=== PATIENT | male | born 1995 | race African-American/Black ===

== ENCOUNTER 2017-08-04 01:17 | Emergency (ER) | payer SELFPAY ==
[2017-08-04] MEDS ORDERED: LORAZEPAM 1 MG TABLET PO ONE (01:46)
--- NOTE | 2017-08-04 01:46 | ER Document Report ---
HPI - HPI Patient complains to provider of: shakey, short of breath, daily marijuana use Pain Level: Denies Context: 21 yo male smoked marijuana like he usually does daily at 23:30 had strange feeling, shakiness, short of breath- not able to breath, was very agitated ( sitting-standing), feeling palpitations. Under a lot of stress, obtains marijuana from same dealer for 4 years. He went to wake up his girlfriend bc he couldn't breathe. No hx asthma. They (mom, girlfriend and her mom -all in the room) think he needs to see a counselor due to depression/anxious but not suicidal. Earlier tonight he went on a rant about everything he sees wrong in his life and in those around him. They think it has built up over time and now coming out. Daily marijuana for 4 years. Associated Symptoms: Shortness of breath, Other - shakey, see above Exacerbated by: Denies Relieved by: Denies Similar symptoms previously: No Recently seen / treated by doctor: No - ROS ROS below otherwise negative: Yes Systems Reviewed and Negative: Yes All other systems reviewed and negative - REPRODUCTIVE Reproductive: DENIES: : Past Medical History - General Information source: Patient - Social History Smoking Status: Never Smoker Frequency of alcohol use: None Drug Abuse: Marijuana - daily Occupation: [employer] Lives with: Spouse/Significant other Family History: Reviewed & Not Pertinent - Past Medical History Cardiac Medical History: Pulmonary Medical History: GI Medical History: Musculoskeltal Medical History: Infectious Medical History: Surgical Hx: Negative - Immunizations Immunizations up to date: Yes Hx Diphtheria, Pertussis, Tetanus Vaccination: No Vertical Provider Document - CONSTITUTIONAL Agree With Documented VS: Yes Exam Limitations: No Limitations General Appearance: No Apparent Distress - INFECTION CONTROL TRAVEL OUTSIDE OF THE [place] IN LAST 30 DAYS: No - HEENT HEENT: Normal ENT Exam, Normocephalic - NECK Neck: Supple. negative: Lymphadenopathy-Left, Lymphadenopathy-Right - RESPIRATORY Respiratory: Breath Sounds Normal, No Respiratory Distress O2 Sat by Pulse Oximetry: 100 - CARDIOVASCULAR Cardiovascular: Regular Rate - rate 90 now, Regular Rhythm - GI/ABDOMEN Gastrointestinal: Abdomen Soft, Abdomen Non-Tender - MUSCULOSKELETAL/EXTREMETIES Musculoskeletal/Extremeties: GERRY CARROLL - NEURO Level of Consciousness: Awake, Alert, Appropriate, Agitated - tremulous Motor/Sensory: No Motor Deficit, No Sensory Deficit - DERM Integumentary: Warm, Dry, No Rash Course - Re-evaluation Re-evalutation: 08/04/17 02:39 feels much better, vitals normal, not anxious at this time. Information for counseling services in [place] has been given to him. Urin 1.033, will encourage to drink more fluid 08/04/17 02:44 - Vital Signs Vital signs: Temp Pulse Resp BP Pulse Ox 98.3 F 110 H 18 163/80 H 100 08/04/17 01:18 08/04/17 01:18 08/04/17 01:18 08/04/17 01:18 08/04/17 01:18 Discharge - Discharge Clinical Impression: Anxiety, Marijuana abuse Condition: Good Disposition: HOME, SELF-CARE Instructions: Anxiety ([facility]) Additional Instructions: Call me in 1 hour for the drug screen results at [phone] Drink plenty of fluids to stay hydrated seek counselor for anxiety and/or depression, list given to you to er if symptoms recur Please complete the patient satisfaction survey if you get one, and return it.. If you do not receive a survey, then you can go to the [facility] website, [email or web address] and place your comments about your very good care. Thank you very much. It was a pleasure being your medical provider today. Prescriptions: Lorazepam [Ativan 1 mg Tablet] 1 mg PO Q6HP PRN #8 tab PRN Reason:
[2017-08-04 02:21] LABS: APPEARANCE,URINE CLEAR; BILIRUBIN,URINE NEGATIVE (NEGATIVE); GLUCOSE, URINE NEGATIVE (NEGATIVE); KETONES,URINE TRACE mg/dL (NEGATIVE); LEUKOCYTE ESTERASE,URINE NEGATIVE (NEGATIVE); NITRITE,URINE NEGATIVE (NEGATIVE); PROTEIN,URINE 30 mg/dL (NEGATIVE); URINE SPECIFIC GRAVITY 1.033
[2017-08-04 02:34] LABS: URINE BARBITURATES SCREEN NEGATIVE; URINE METHADONE SCREEN NEGATIVE; URINE OPIATES LOW NEGATIVE; URINE PHENCYCLIDINE SCREEN NEGATIVE
[2017-08-04 02:42] VITALS: BP 125/82
== END 2017-08-04 02:50 | disposition home or self-care (01) ==
LOC: ER 01:17
DX: F41.9 Anxiety disorder, unspecified (principal); F12.10 Cannabis abuse, uncomplicated; R06.02 Shortness of breath; R45.1 Restlessness and agitation; F32.9 Major depressive disorder, single episode, unspecified
CPT/HCPCS: 80307; 81001; 99285

== ENCOUNTER 2017-08-18 23:28 | Emergency (ER) | payer SELFPAY ==
[2017-08-19] MEDS ORDERED: LORAZEPAM 1 MG TABLET PO ONE (00:25)
--- NOTE | 2017-08-19 00:28 | ER Document Report ---
ED General - General Chief Complaint: Anxiety Stated Complaint: ANXIETY Time Seen by Provider: 08/19/17 00:00 Notes: Patient is a 21-year-old male who presents with feelings of palpitations, anxiety, and tremulousness. Patient reports that this is a second episode of similar symptoms in the past 2 weeks but today's episode of pelvic more severe. He states last time his symptoms were triggered by marijuana but is adamant that he did not use any today. He denies any suicidal or homicidal ideation. Nothing seems to improve or worsen his symptoms. He denies any clear trigger for today's episode stating he was sitting watching television when it started. He denies any chest pain, shortness of breath, pleuritic pain, or syncope. He has not seen a primary care doctor regarding today's concerns. TRAVEL OUTSIDE OF THE [place] IN LAST 30 DAYS: No - Related Data Allergies/Adverse Reactions: No Known Allergies Allergy (Verified 08/04/17 02:03) Past Medical History - General Information source: Patient - Social History Smoking Status: Never Smoker Frequency of alcohol use: None Drug Abuse: None Lives with: Spouse/Significant other Family History: Reviewed & Not Pertinent - Past Medical History Cardiac Medical History: Denies: Hx Coronary Artery Disease, Hx Heart Attack, Hx Hypertension Pulmonary Medical History: Denies: Hx Asthma, Hx Bronchitis, Hx COPD, Hx Pneumonia Neurological Medical History: Denies: Hx Cerebrovascular Accident, Hx Seizures Renal/ Medical History: Denies: Hx Peritoneal Dialysis GI Medical History: Musculoskeltal Medical History: Denies Hx Arthritis Traumatic Medical History: Denies: Hx Fractures Infectious Medical History: Past Surgical History: Denies: Hx Pacemaker - Immunizations Immunizations up to date: Yes Hx Diphtheria, Pertussis, Tetanus Vaccination: No Review of Systems - Review of Systems Notes: Constitutional: Negative for fever. HENT: Negative for sore throat. Eyes: Negative for visual changes. Cardiovascular: Positive for palpitations Respiratory: Negative for shortness of breath. Gastrointestinal: Negative for abdominal pain, vomiting or diarrhea. Genitourinary: Negative for dysuria. Musculoskeletal: Negative for back pain. Skin: Negative for rash. Neurological: Negative for headaches, weakness or numbness. 10 point ROS negative except as marked above and in HPI. Physical Exam - Vital signs Vitals: Temp Pulse BP Pulse Ox 98.8 F 130 H 152/96 H 100 08/18/17 23:44 08/18/17 23:44 08/18/17 23:44 08/18/17 23:44 Interpretation: Tachycardic Notes: PHYSICAL EXAMINATION: GENERAL: Well-appearing, well-nourished and in no acute distress. HEAD: Atraumatic, normocephalic. EYES: Pupils equal round and reactive to light, extraocular movements intact, sclera anicteric, conjunctiva are normal. ENT: nares patent, oropharynx clear without exudates. Moist mucous membranes. NECK: Normal range of motion, supple without lymphadenopathy LUNGS: Breath sounds clear to auscultation bilaterally and equal. No wheezes rales or rhonchi. HEART: Regular tachycardia without murmurs ABDOMEN: Soft, nontender, normoactive bowel sounds. No guarding, no rebound. No masses appreciated. EXTREMITIES: Normal range of motion, no pitting or edema. No cyanosis. NEUROLOGICAL: No focal neurological deficits. Moves all extremities spontaneously and on command. PSYCH: Quite anxious, tremulous SKIN: Warm, Dry, normal turgor, no rashes or lesions noted. Course - Re-evaluation Re-evalutation: 08/19/17 00:25 Patient presents with history most consistent with an acute panic attack. The patient admits that these are symptoms identical to prior occasions of panic. Symptoms did resolve after receiving medical therapy here in the emergency department. Vitals otherwise within normal limits. I do not suspect an acute pulmonary embolus, ACS, pneumothorax, or any other acute left threatening pathology based on history and exam. I do not believe any labs or imaging are indicated at this time. At this time will discharge with return precautions and follow-up recommendations. Verbal discharge instructions given a the bedside and opportunity for questions given. Medication warnings reviewed. Patient is in agreement with this plan and has verbalized understanding of return precautions and the need for primary care follow-up in the next 24-72 hours. - Vital Signs Vital signs: Temp Pulse Resp BP Pulse Ox 98.0 F 66 16 124/68 98 08/19/17 01:34 08/19/17 01:34 08/19/17 01:34 08/19/17 01:34 08/19/17 01:34 - EKG Interpretation by Me Additional EKG results interpreted by me: 08/19/17 00:27 Sinus tachycardia. Rate 112. No ST elevations or depressions. QTC is 443. Discharge - Discharge Clinical Impression: Panic attack Condition: Good Disposition: HOME, SELF-CARE Instructions: Anxiety ([facility]) Additional Instructions: You were seen today for a panic attack. Please return if you develop recurrence of your symptoms, thoughts of wanting to harm yourself, or any other symptoms that are concerning to you. Follow-up with your primary doctor or mental health provider regarding today's ED visit.
[2017-08-19 01:41] VITALS: BP 124/68
--- NOTE | 2017-08-19 12:16 | EKG REPORT ---
SEVERITY:- ABNORMAL ECG - SINUS TACHYCARDIA PROBABLE LEFT ATRIAL ABNORMALITY ABNORMAL Q SUGGESTS ANTERIOR INFARCT : Confirmed by: Jennifer Rutherford MD 19-Aug-2017 12:16:08
== END 2017-08-19 01:41 | disposition home or self-care (01) ==
LOC: ER 23:28
DX: F41.0 Panic disorder [episodic paroxysmal anxiety] (principal); R00.2 Palpitations; R00.0 Tachycardia, unspecified
CPT/HCPCS: 93005; 93010; 99283

== ENCOUNTER 2017-08-26 14:02 | Emergency (ER) | payer BC ==
--- NOTE | 2017-08-26 15:14 | ER Document Report ---
ED Medical Screen (RME) - General Chief Complaint: Psych Problem Stated Complaint: DIZZINESS Time Seen by Provider: 08/26/17 15:09 Mode of Arrival: Ambulatory Information source: Patient Notes: Pt has anxiety and started lexapro three days ago and had lgihtheadedness, dizziness, and is having chest pain with deep breathing. denies other symptoms such as cough. TRAVEL OUTSIDE OF THE [place] IN LAST 30 DAYS: No - Related Data Allergies/Adverse Reactions: No Known Allergies Allergy (Verified 08/26/17 14:05) Past Medical History - General Information source: Patient - Past Medical History Cardiac Medical History: Denies: Hx Coronary Artery Disease, Hx Heart Attack, Hx Hypertension Pulmonary Medical History: Denies: Hx Asthma, Hx Bronchitis, Hx COPD, Hx Pneumonia Neurological Medical History: Denies: Hx Cerebrovascular Accident, Hx Seizures Renal/ Medical History: Denies: Hx Peritoneal Dialysis GI Medical History: Musculoskeltal Medical History: Denies Hx Arthritis Traumatic Medical History: Denies: Hx Fractures Infectious Medical History: Past Surgical History: Denies: Hx Pacemaker - Immunizations Immunizations up to date: Yes Hx Diphtheria, Pertussis, Tetanus Vaccination: No Review of Systems - Review of Systems Neurological/Psychological: See HPI Physical Exam - Vital signs Vitals: Temp Pulse Resp BP Pulse Ox 98.0 F 75 12 161/87 H 99 08/26/17 14:23 08/26/17 14:23 08/26/17 14:23 08/26/17 14:23 08/26/17 14:23 - Notes Notes: general: nad psych: calm Course - Vital Signs Vital signs: Temp Pulse Resp BP Pulse Ox 98.0 F 75 12 161/87 H 99 08/26/17 14:23 08/26/17 14:23 08/26/17 14:23 08/26/17 14:23 08/26/17 14:23
[2017-08-26 15:42] LABS: ABSOLUTE LYMPHOCYTES (AUTO) 1.7 10^3/uL (0.5-4.7); ABSOLUTE MONOCYTES (AUTO) 0.5 10^3/uL (0.1-1.4); ABSOLUTE NEUT (AUTO) 3.6 10^3/uL (1.7-8.2); BASOPHILS % (AUTO) 0.8 % (0-2); EOSINOPHILS % (AUTO) 0.8 % (0-6); HEMATOCRIT 46.5 % (37.9-51.0); HEMOGLOBIN 16.2 g/dL (13.5-17.0); MEAN CORPUSCULAR HEMOGLOBIN 31.7 pg (27.0-33.4); MEAN CORPUSCULAR HGB CONC 34.8 g/dL (32.0-36.0); MEAN CORPUSCULAR VOLUME 91 fl (80-97); PLATELET COUNT 308 10^3/uL (150-450); RED BLOOD COUNT 5.12 10^6/uL (4.35-5.55); RED CELL DISTRIBUTION WIDTH 13.8 % (11.5-14.0); SEGMENTED NEUTROPHILS % (AUTO) 61.4 % (42-78); TOTAL CELLS COUNTED % (AUTO) 100 %; WHITE BLOOD COUNT 5.8 10^3/uL (4.0-10.5)
--- NOTE | 2017-08-26 15:44 | RADIOLOGY REPORT (SQ) ---
EXAM DESCRIPTION: CHEST PA/LAT COMPLETED DATE/TIME: 08/26/2017 3:35 pm REASON FOR STUDY: cp with deep breathing only COMPARISON: None. EXAM PARAMETERS: NUMBER OF VIEWS: two views TECHNIQUE: Digital Frontal and Lateral radiographic views of the chest acquired. RADIATION DOSE: NA LIMITATIONS: none FINDINGS: LUNGS AND PLEURA: No opacities, masses or pneumothorax. No pleural effusion. MEDIASTINUM AND HILAR STRUCTURES: No masses or contour abnormalities. HEART AND VASCULAR STRUCTURES: Heart normal size. No evidence for failure. BONES: No acute findings. HARDWARE: None in the chest. OTHER: No other significant finding. IMPRESSION: NO SIGNIFICANT RADIOGRAPHIC FINDING IN THE CHEST. TECHNICAL DOCUMENTATION: JOB ID: [id number] [employer]- All Rights Reserved
[2017-08-26 15:50] LABS: APPEARANCE,URINE CLEAR; BILIRUBIN,URINE NEGATIVE (NEGATIVE); COLOR,URINE YELLOW; GLUCOSE, URINE NEGATIVE (NEGATIVE); KETONES,URINE NEGATIVE (NEGATIVE); LEUKOCYTE ESTERASE,URINE NEGATIVE (NEGATIVE); NITRITE,URINE NEGATIVE (NEGATIVE); PROTEIN,URINE NEGATIVE (NEGATIVE); URINE SPECIFIC GRAVITY 1.014; UROBILINOGEN,URINE NEGATIVE mg/dL (<2.0)
[2017-08-26 15:55] LABS: ALANINE AMINOTRANSFERASE 30 U/L (21-72); ALBUMIN 5.2 g/dL (3.5-5.0); ALKALINE PHOSPHATASE 69 U/L (38-126); ANION GAP 14 (5-19); ASPARTATE AMINO TRANSFERASE 27 U/L (17-59); BILIRUBIN,DIRECT 0.2 mg/dL (0.0-0.4); BILIRUBIN,TOTAL 0.4 mg/dL (0.2-1.3); BLOOD UREA NITROGEN 11 mg/dL (7-20); CARBON DIOXIDE 29 mmol/L (22-30); CHLORIDE 100 mmol/L (98-107); GLUCOSE 86 mg/dL (75-110); POTASSIUM 4.4 mmol/L (3.6-5.0); SODIUM 143.4 mmol/L (137-145); TOTAL PROTEIN 8.5 g/dL (6.3-8.2)
[2017-08-26 16:05] LABS: URINE AMPHETAMINES SCREEN NEGATIVE; URINE BARBITURATES SCREEN NEGATIVE; URINE BENZODIAZEPINES SCREEN NEGATIVE; URINE COCAINE SCREEN NEGATIVE; URINE MARIJUANA (THC) SCREEN UNCONFIRMED POSITIVE; URINE METHADONE SCREEN NEGATIVE; URINE PHENCYCLIDINE SCREEN NEGATIVE
--- NOTE | 2017-08-26 17:09 | ER Document Report ---
ED Psych Disorder / Suicide - General Chief Complaint: Psych Problem Stated Complaint: DIZZINESS Time Seen by Provider: 08/26/17 15:09 Mode of Arrival: Ambulatory Information source: Patient Notes: Patient reports anxiety symptoms off and on for the past several weeks. Patient states that 3 days ago he took a friend's Lexapro to help manage his anxiety symptoms. Patient feels that after taking the medication his symptoms worsened. Patient also reports a recent in the family that has exacerbated his symptoms. Patient states that he has an anxious restless sensation. Patient denies any chest pain. Patient denies any suicidal homicidal ideation. Patient states that he has not smoked any marijuana since his anxiety symptoms started. TRAVEL OUTSIDE OF THE [place] IN LAST 30 DAYS: No - HPI Patient complains to provider of: No: Homicidal plan, Suicidal plan Onset: Other - 3 weeks Onset was: Gradual Pain Level: Denies Suicide Risk Factors: Male, Substance abuse. No: Lack of social support Situational problems related to: Recent Associated symptoms: Anxious Similar symptoms previously: Yes Recently seen / treated by doctor: Yes - Related Data Allergies/Adverse Reactions: No Known Allergies Allergy (Verified 08/26/17 14:05) Past Medical History - General Information source: Patient - Social History Smoking Status: Never Smoker Frequency of alcohol use: None Drug Abuse: Marijuana Occupation: Foodservice Family History: Reviewed & Not Pertinent - Medical History Medical History: Negative - Past Medical History Cardiac Medical History: Denies: Hx Coronary Artery Disease, Hx Heart Attack, Hx Hypertension Pulmonary Medical History: Denies: Hx Asthma, Hx Bronchitis, Hx COPD, Hx Pneumonia Neurological Medical History: Denies: Hx Cerebrovascular Accident, Hx Seizures Renal/ Medical History: Denies: Hx Peritoneal Dialysis GI Medical History: Musculoskeltal Medical History: Denies Hx Arthritis Traumatic Medical History: Denies: Hx Fractures Infectious Medical History: Past Surgical History: Reports: Hx Orthopedic Surgery. Denies: Hx Pacemaker - Immunizations Immunizations up to date: Yes Hx Diphtheria, Pertussis, Tetanus Vaccination: No Review of Systems - Review of Systems Constitutional: No symptoms reported. denies: Fever, Recent illness EENT: No symptoms reported Cardiovascular: Dizziness, Lightheaded Respiratory: No symptoms reported. denies: Cough Gastrointestinal: No symptoms reported Genitourinary: No symptoms reported Male Genitourinary: No symptoms reported Musculoskeletal: No symptoms reported Skin: No symptoms reported Hematologic/Lymphatic: No symptoms reported Neurological/Psychological: Anxiety. denies: Homicidal ideation, Suicidal ideation Physical Exam - Vital signs Vitals: Temp Pulse Resp BP Pulse Ox 98.0 F 75 12 161/87 H 99 08/26/17 14:23 08/26/17 14:23 08/26/17 14:23 08/26/17 14:23 08/26/17 14:23 - General General appearance: Appears well, Alert, Anxious - mild In distress: None - HEENT Head: Normocephalic, Atraumatic Eyes: Normal Conjunctiva: Normal Pupils: PERRL Nasal: Normal Mouth/Lips: Normal Mucous membranes: Normal Pharynx: Normal Neck: Normal, Supple. No: Lymphadenopathy - Respiratory Respiratory status: No respiratory distress Chest status: Nontender Breath sounds: Normal. No: Rales, Rhonchi, Stridor, Wheezing Chest palpation: Normal - Cardiovascular Rhythm: Regular. No: Tachycardia Heart sounds: S1 appreciated, S2 appreciated Murmur: No - Back Back: Normal, Nontender. No: CVA tenderness - Extremities General upper extremity: Normal inspection, Normal ROM General lower extremity: Normal inspection, Normal ROM - Neurological Neuro grossly intact: Yes Cognition: Normal Abdoul Coma Scale Eye Opening: Spontaneous Abdoul Coma Scale Verbal: Oriented Abdoul Coma Scale Motor: Obeys Commands [place] Coma Scale Total: 15 - Psychological Associated symptoms: Anxious, Other - poor eye contact - Skin Skin Temperature: Warm Skin Moisture: Dry Skin Color: Normal Course - Re-evaluation Re-evalutation: 08/26/17 18:19 Consulted with Michael who had spoke with Dr. Ruffin who gives a recommendation of adding BuSpar 5 mg twice a day instead of the Ativan to help with anxiety symptoms. Does advise giving patient resource information for outpatient follow -up with mental health provider. Patient without any suicidal or homicidal ideation agrees with plan for discharge. No concern for IVC. 08/26/17 18:[address] Herrera regarding patient presentation, reviewed diagnostic test results as well as EKG. Agrees with discharge plan of care. - Vital Signs Vital signs: Temp Pulse Resp BP Pulse Ox 98.4 F 69 18 146/97 H 95 08/26/17 18:28 08/26/17 18:28 08/26/17 18:28 08/26/17 18:28 08/26/17 18:28 - Laboratory Result Diagrams: 08/26/17 15:25 08/26/17 15:25 Laboratory results interpreted by me: 08/26/17 15:25 Calcium 11.0 H Total Protein 8.5 H Albumin 5.2 H 08/26/17 18:19 Labs- Entire Visit 08/26/17 08/26/17 08/26/17 15:25 15:25 15:25 WBC 5.8 RBC 5.12 Hgb 16.2 Hct 46.5 MCV 91 MCH 31.7 MCHC 34.8 RDW 13.8 Plt Count 308 Seg Neutrophils % 61.4 Lymphocytes % 29.0 Monocytes % 8.0 Eosinophils % 0.8 Basophils % 0.8 Absolute Neutrophils 3.6 Absolute Lymphocytes 1.7 Absolute Monocytes 0.5 Absolute Eosinophils 0.0 Absolute Basophils 0.0 Sodium 143.4 Potassium 4.4 Chloride 100 Carbon Dioxide 29 Anion Gap 14 BUN 11 Creatinine 0.95 Est GFR ( Amer) > 60 Est GFR (Non-Af Amer) > 60 Glucose 86 Calcium 11.0 H Total Bilirubin 0.4 Direct Bilirubin 0.2 Neonat Total Bilirubin Not Reportable Neonat Direct Bilirubin Not Reportable Neonat Indirect Bili Not Reportable AST 27 ALT 30 Alkaline Phosphatase 69 Total Protein 8.5 H Albumin 5.2 H Urine Color YELLOW Urine Appearance CLEAR Urine pH 8.0 Ur Specific Blair 1.014 Urine Protein NEGATIVE Urine Glucose (UA) NEGATIVE Urine Ketones NEGATIVE Urine Blood NEGATIVE Urine Nitrite NEGATIVE Urine Bilirubin NEGATIVE Urine Urobilinogen NEGATIVE Ur Leukocyte Esterase NEGATIVE Urine WBC (Auto) 1 Urine RBC (Auto) 0 Urine Mucus (Auto) RARE Urine Ascorbic Acid NEGATIVE Urine Opiates Screen Urine Methadone Screen Ur Barbiturates Screen Ur Phencyclidine Scrn Ur Amphetamines Screen U Benzodiazepines Scrn Urine Cocaine Screen U Marijuana (THC) Screen 08/26/17 15:25 WBC RBC Hgb Hct MCV MCH MCHC RDW Plt Count Seg Neutrophils % Lymphocytes % Monocytes % Eosinophils % Basophils % Absolute Neutrophils Absolute Lymphocytes Absolute Monocytes Absolute Eosinophils Absolute Basophils Sodium Potassium Chloride Carbon Dioxide Anion Gap BUN Creatinine Est GFR ( Amer) Est GFR (Non-Af Amer) Glucose Calcium Total Bilirubin Direct Bilirubin Neonat Total Bilirubin Neonat Direct Bilirubin Neonat Indirect Bili AST ALT Alkaline Phosphatase Total Protein Albumin Urine Color Urine Appearance Urine pH Ur Specific Blair Urine Protein Urine Glucose (UA) Urine Ketones Urine Blood Urine Nitrite Urine Bilirubin Urine Urobilinogen Ur Leukocyte Esterase Urine WBC (Auto) Urine RBC (Auto) Urine Mucus (Auto) Urine Ascorbic Acid Urine Opiates Screen NEGATIVE Urine Methadone Screen NEGATIVE Ur Barbiturates Screen NEGATIVE Ur Phencyclidine Scrn NEGATIVE Ur Amphetamines Screen NEGATIVE U Benzodiazepines Scrn NEGATIVE Urine Cocaine Screen NEGATIVE U Marijuana (THC) Screen UNCONFIRMED POSITIVE - Diagnostic Test Radiology reviewed: Reports reviewed Discharge - Discharge Clinical Impression: Anxiety, Elevated blood pressure reading Condition: Stable Disposition: HOME, SELF-CARE Instructions: Anxiety ([facility]) Additional Instructions: Return immediately for any new or worsening symptoms Followup with your primary care provider, call tomorrow to make a followup appointment Do not take medications that are not prescribed to you. You can use the BuSpar instead of the Ativan to help with your anxiety symptoms Follow-up with a mental health provider from list provided, call tomorrow for an appointment Prescriptions: Buspirone HCl [Buspar 5 mg Tablet] 1 tab PO BID #20 tab Forms: Elevated Blood Pressure Referrals: [facility] [Provider Group] - Follow up as needed [facility] [Provider Group] - Follow up tomorrow
[2017-08-26 18:31] VITALS: BP 146/97
--- NOTE | 2017-08-26 19:44 | PSYCHOLOGICAL NOTE ---
Psych Note - Psych Note Psych Note: Reason for consult: Anxiety Consent Permissions: none given Patient presents to ED with complaints of feeling dizzy and "not right" since taking lexapro 2 days ago. Patient states he is prescribed ativan and ran out and thought his sister's lexapro would help. Patient states he felt the lexapro would have "wore off by now". denies any SI/HI and states "just want to make sure I'm okay." Patient disclosed that he had his anxiety attack on Aug 04 and when he came to the ED the attending physician explained to him that smoking marijuana could be causing his anxiety, so he decided to stop. He continued to disclose that he ending up smoking again and had another attack. When he came to the ED the attending physician again told him to stop smoking marijuana and prescribed him ativan . He stated it was explained to him it was if he needed it but not to fill it if he didn't need it. The patient states he did not fill it until yesterday because he had been fine until the when he started feeling it again. He denies he was smoking marijuana this time, he disclosed that his cousin had he has was very close with him. His cousin was only one year older than him. He thought that since he knew his sister has anxiety he would take her medicine to help (at this point he had not filed the prescription for ativan). He disclosed he took 20mg of Lexapro and has had no appetite, very sleepy, and feeling like being in a "fog." He thought it would have gone away by now but still feels it a little. He denies thoughts of suicide just sadness at the lose of his cousin. He reports he has filled the prescription but wanted to make sure he was alright. Patient is alert and orientated to person, place, time and circumstance. Mood is euthymic with congruent affect as evidenced by engaging with clinician and laughing. patient denies suicidal and homicidal ideation. delusions are absent and patient's thought processes are organize and linear. Conversational speech is within normal rate tone and prosody. intellectual ability appear to be within the average range. attention and concentration are good. Insight, judgement and impluse control is overall good; however, fair in regards to marijuana use. 304.30 (F12.20) Marijuana abuse; moderate 300.00 (F41.9) Unspecified anxiety disorder Impression/plan: Patient is considered psychologically cleared. He does not meet IVC criteria per [place] GS 122C. He denies thoughts of suicide just sadness at the lose of his cousin. Patient was concerned he took his sister's prescription of Lexapro feeling sleeping, being in a fog and loss of appetite. He thought that today he would have felt better but still feeling some malaise effects. Clinician conducted psychoeducation on difference between daily medications and as needed medications in addition to antidepressants versus antianxiety medication. Clinician encouraged patient to stop smoking marijuana. Patient is recommended to follow-up with outpatient mental health services. Dr. Ruffin was consulted on the care and management of this patient ; attending physician is in agreement with recommendations and disposition.
--- NOTE | 2017-08-26 20:09 | EKG REPORT ---
SEVERITY:- OTHERWISE NORMAL ECG - SINUS RHYTHM S1,S2,S3 PATTERN : Confirmed by: Teresita Walden 26-Aug-2017 20:08:49
== END 2017-08-26 18:31 | disposition home or self-care (01) ==
LOC: ER 14:02
DX: F41.9 Anxiety disorder, unspecified (principal); F12.10 Cannabis abuse, uncomplicated; R42 Dizziness and giddiness; R03.0 Elevated blood-pressure reading, without diagnosis of hypertension
CPT/HCPCS: 36415; 71046; 80053; 80307; 81001; 85025; 93005; 93010; 99285

== ENCOUNTER 2018-07-11 07:44 | Emergency (ER) | payer BC, OTHER ==
--- NOTE | 2018-07-11 08:16 | ER Document Report ---
ED GI/ - General Chief Complaint: Flank Pain Stated Complaint: RIGHT SIDE PAIN Time Seen by Provider: 07/11/18 07:59 Mode of Arrival: Ambulatory Information source: Patient, Relative Notes: Patient is a 22-year-old male comes in emergency room with a vague complaint of right-sided pain. Patient states that he started to notice this right sided abdominal and flank pain yesterday morning when he woke up and got into a coughing fit and the pain started. It is on and off again pain is sharp and it does radiate from the abdomen and goes towards the back. He states that he did get some relief last evening when he had a bowel movement after the bowel movement he stood up and the pain went away. He states that he notices no association with eating and as a matter fact he has not been eating much the last few days. Last meal was yesterday. Denies any nausea or vomiting with this discomfort. 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 Admits to smoking 4-5 cigarettes a day. Family history is pertinent for kidney stones and for early gallbladder disease. TRAVEL OUTSIDE OF THE [place] IN LAST 30 DAYS: No - HPI Patient complains to provider of: Abdominal pain, Flank pain Onset: Yesterday Timing/Duration: Sudden, Intermittent Quality of pain: Sharp, Stabbing, Throbbing Severity at maximum: Moderate Severity in ED: Moderate Pain Level: 0 Location: LUQ, RUQ, Right flank Adult Front & Back Diagram: 1 - Diffuse upper quadrant pain greater on the right than the left 2 - Flank pain occurs after the abdominal pain starts. Exacerbated by: Denies, Other - Coughing Relieved by: Other - Time Similar symptoms previously: No Recently seen / treated by doctor: No - Related Data Allergies/Adverse Reactions: No Known Allergies Allergy (Verified 07/11/18 07:46) Past Medical History - General Information source: Patient, Relative - Social History Smoking Status: Current Every Day Smoker Cigarette use (# per day): Yes - 4 cigarettes/day Chew tobacco use (# tins/day): No Smoking Education Provided: Yes Frequency of alcohol use: Rare Drug Abuse: Marijuana Lives with: Family Family History: Reviewed & Not Pertinent Patient has suicidal ideation: No Patient has homicidal ideation: No - Past Medical History Cardiac Medical History: Denies: Hx Coronary Artery Disease, Hx Heart Attack, Hx Hypertension Pulmonary Medical History: Denies: Hx Asthma, Hx Bronchitis, Hx COPD, Hx Pneumonia Neurological Medical History: Denies: Hx Cerebrovascular Accident, Hx Seizures Renal/ Medical History: Denies: Hx Peritoneal Dialysis GI Medical History: Musculoskeletal Medical History: Denies Hx Arthritis Traumatic Medical History: Denies: Hx Fractures Infectious Medical History: Past Surgical History: Reports: Hx Orthopedic Surgery. Denies: Hx Pacemaker - Immunizations Immunizations up to date: Yes Hx Diphtheria, Pertussis, Tetanus Vaccination: No Review of Systems - Review of Systems Constitutional: No symptoms reported EENT: No symptoms reported Cardiovascular: No symptoms reported Respiratory: No symptoms reported Gastrointestinal: See HPI, Abdominal pain Genitourinary: See HPI, Flank pain Male Genitourinary: No symptoms reported Musculoskeletal: No symptoms reported Skin: No symptoms reported Hematologic/Lymphatic: No symptoms reported Neurological/Psychological: No symptoms reported -: Yes All other systems reviewed and negative Physical Exam - Vital signs Vitals: Temp Pulse Resp BP Pulse Ox 98.5 F 81 14 149/81 H 100 07/11/18 07:50 07/11/18 07:50 07/11/18 07:50 07/11/18 07:50 07/11/18 07:50 Interpretation: Hypertensive - Notes Notes: PHYSICAL EXAMINATION: GENERAL: Patient is a well-nourished well-developed 22-year-old male who is in no distress on physical exam today. Patient looks relaxed and is comfortable currently. HEAD: Atraumatic, normocephalic. EYES: Pupils equal round and reactive to light, extraocular movements intact, sclera anicteric, conjunctiva are normal. ENT: Nares patent, oropharynx clear without exudates. Moist mucous membranes. NECK: Normal range of motion, supple without lymphadenopathy LUNGS: Breath sounds clear to auscultation bilaterally and equal. No wheezes rales or rhonchi. HEART: Regular rate and rhythm without murmurs ABDOMEN: Examination of the abdomen shows patient has bowel sounds in all 4 quads. He is slightly tympanitic in the upper quads greater on the right than the left. Patient displays some moderate tenderness in bilateral upper quads with right side being more intense. There is a semi-positive Musa sign patient has pain and discomfort deep inhalation while palpation of the liver margins however there is no pause on inspiration. Patient does not display any flank pain to percussion at this time. Musculoskeletal: Normal range of motion, no pitting or edema. No cyanosis. NEUROLOGICAL: Cranial nerves grossly intact. Normal speech, normal gait. Normal sensory, motor exams PSYCH: Normal mood, normal affect./Happy SKIN: Warm, Dry, normal turgor, no rashes or lesions noted. Course - Re-evaluation Re-evalutation: 07/11/18 09:47 Further conversation with patient about his complaints that started yesterday is he has had a normal bowel movement last one probably was last night which he had clearing of discomfort and pain after a bowel movement. His lab work comes back looking as if he has a viral presentation he has elevated lymphs and decreased neutrophils. Patient had no nausea or vomiting he has had no upper respiratory's presentation of congestion runny nose or cough also may be early on in the presentation could be an early viral gastritis getting ready to brew at this point I am going to let patient go home without further workup or use of any radiologic diagnostic testing since there is really in nothing leading me to a specific test. Patient does not have a lot of discomfort on palpation even though bilateral upper quadrants were mildly tender with the right being greater than the left and semi-positive Musa sign meeting pain with palpation around the liver margins but no catch on inspiration. Patient is ambulatory I have seen him walking in the halls and is been happy he has not asked for any kind of pain medications. He is with his father I went in and approach both of them with the findings of their lab work and why I was not going to pursue any radiologic testing they were both very happy with this outcome I have explained to them with biliary colic is and also about the possibility of him early viral presentation either stomach or upper respiratory. I have informed him that the anything changes they can come back and we can pursue a test at that time that may be leading us in a more direct or developing problem. Patient and father were in agreement with this. - Vital Signs Vital signs: Temp Pulse Resp BP Pulse Ox 98.5 F 81 14 149/81 H 100 07/11/18 07:50 07/11/18 07:50 07/11/18 07:50 07/11/18 07:50 07/11/18 07:50 - Laboratory Result Diagrams: 07/11/18 08:25 07/11/18 08:25 Laboratory results interpreted by me: 07/11/18 07/11/18 07/11/18 08:25 08:25 08:25 RDW 14.6 H Seg Neutrophils % 36.8 L Lymphocytes % 49.4 H ALT 18 L Urine Urobilinogen 2.0 H Discharge - Discharge Clinical Impression: Nonspecific syndrome suggestive of viral illness, Biliary colic symptom Condition: Stable Disposition: HOME, SELF-CARE Instructions: Abdominal Pain ([facility]), Antispasmodics ([facility]), Low-Fat Diet ([facility]) Additional Instructions: As we discussed in the room your presentation nonspecific bleeding is to believe that may be a colicky nature of the gallbladder. Given that all your liver functions are normal although your other labs are normal with the exception of your white count looks like it is a viral presentation that may just not of develop fully yet. Could be a viral gastritis or it could be a viral upper respiratory infection that just have not had time to develop. Given that I am going to give you an antispasmodic medication that she can take for the next couple of days to see if it also eliminates that cramping type of feeling. As I discussed with you in the room if anything changes if you have increasing pain he spike a fever or any concerns return to ER we will do a more extensive workup. Prescriptions: Hyoscyamine Sulfate [Levsin 0.125 Tablet] 0.25 mg PO Q6 PRN #20 tablet PRN Reason: Forms: Elevated Blood Pressure, Smoking Cessation Education, Parent Work Note [facility]errals: [facility] [NO LOCAL MD] - Follow up as needed
[2018-07-11 08:36] LABS: ABSOLUTE EOSINOPHILS # (AUTO) 0.2 10^3/uL (0.0-0.6); ABSOLUTE LYMPHOCYTES (AUTO) 2.6 10^3/uL (0.5-4.7); ABSOLUTE MONOCYTES (AUTO) 0.5 10^3/uL (0.1-1.4); BASOPHILS % (AUTO) 0.8 % (0-2); EOSINOPHILS % (AUTO) 3.7 % (0-6); HEMOGLOBIN 16.1 g/dL (13.5-17.0); LYMPHOCYTES % (AUTO) 49.4 % (13-45); MEAN CORPUSCULAR HEMOGLOBIN 32.1 pg (27.0-33.4); MEAN CORPUSCULAR HGB CONC 34.3 g/dL (32.0-36.0); MEAN CORPUSCULAR VOLUME 94 fl (80-97); MONOCYTES % (AUTO) 9.3 % (3-13); PLATELET COUNT 278 10^3/uL (150-450); RED BLOOD COUNT 5.02 10^6/uL (4.35-5.55); RED CELL DISTRIBUTION WIDTH 14.6 % (11.5-14.0); SEGMENTED NEUTROPHILS % (AUTO) 36.8 % (42-78); TOTAL CELLS COUNTED % (AUTO) 100 %; WHITE BLOOD COUNT 5.3 10^3/uL (4.0-10.5)
[2018-07-11 08:48] LABS: APPEARANCE,URINE SLIGHTLY-CLOUDY; BILIRUBIN,URINE NEGATIVE (NEGATIVE); COLOR,URINE YELLOW; GLUCOSE, URINE NEGATIVE (NEGATIVE); KETONES,URINE NEGATIVE (NEGATIVE); LEUKOCYTE ESTERASE,URINE NEGATIVE (NEGATIVE); NITRITE,URINE NEGATIVE (NEGATIVE); PROTEIN,URINE NEGATIVE (NEGATIVE); URINE SPECIFIC GRAVITY 1.027
[2018-07-11 08:54] LABS: ALANINE AMINOTRANSFERASE 18 U/L (21-72); ALBUMIN 4.6 g/dL (3.5-5.0); ALKALINE PHOSPHATASE 57 U/L (38-126); ANION GAP 12 (5-19); ASPARTATE AMINO TRANSFERASE 44 U/L (17-59); BILIRUBIN,DIRECT 0.3 mg/dL (0.0-0.4); BILIRUBIN,TOTAL 0.5 mg/dL (0.2-1.3); BLOOD UREA NITROGEN 16 mg/dL (7-20); CALCIUM 9.5 mg/dL (8.4-10.2); CARBON DIOXIDE 27 mmol/L (22-30); CHLORIDE 105 mmol/L (98-107); GLUCOSE 105 mg/dL (75-110); LIPASE 59.3 U/L (23-300); SODIUM 143.5 mmol/L (137-145); TOTAL PROTEIN 7.9 g/dL (6.3-8.2)
[2018-07-11 09:04] LABS: URINE AMPHETAMINES SCREEN NEGATIVE; URINE BARBITURATES SCREEN NEGATIVE; URINE BENZODIAZEPINES SCREEN NEGATIVE; URINE COCAINE SCREEN NEGATIVE; URINE MARIJUANA (THC) SCREEN UNCONFIRMED POSITIVE; URINE METHADONE SCREEN NEGATIVE; URINE PHENCYCLIDINE SCREEN NEGATIVE
[2018-07-11 10:04] VITALS: BP 154/76
== END 2018-07-11 10:04 | disposition home or self-care (01) ==
LOC: ER 07:44
DX: R10.9 Unspecified abdominal pain (principal); R10.11 Right upper quadrant pain; R10.12 Left upper quadrant pain; F17.210 Nicotine dependence, cigarettes, uncomplicated
CPT/HCPCS: 36415; 80053; 80307; 81001; 83690; 85025; 99284

== ENCOUNTER 2018-07-20 21:03 | Emergency (ER) | payer BC ==
--- NOTE | 2018-07-21 00:35 | ER Document Report ---
ED General - General Chief Complaint: Cold Symptoms Stated Complaint: RUNNY NOSE,SORE THROAT,EXTREME TIREDNESS Time Seen by Provider: 07/20/18 23:41 Mode of Arrival: Ambulatory Information source: Patient TRAVEL OUTSIDE OF THE [place] IN LAST 30 DAYS: No - HPI Patient complains to provider of: Tired, sore throat Onset: Yesterday Onset/Duration: Gradual Severity: Mild Pain Level: Denies Notes: 22-year-old male with no medical problems and otherwise healthy presents to the emergency department for chief complaint of runny nose, inflamed throat, and feeling drained for the last 48 hours. He denies fever, shortness of breath, sinus pain, ear pain nausea, vomiting. He does endorse very mild chest wall pain during inhalation, cough. No recent illness and no sick contacts. He works at [employer]. Changes in every day cigarette and marijuana smoker. - Related Data Allergies/Adverse Reactions: No Known Allergies Allergy (Verified 07/11/18 07:46) Past Medical History - Social History Smoking Status: Current Every Day Smoker Chew tobacco use (# tins/day): No Frequency of alcohol use: Social Drug Abuse: Marijuana Family History: Reviewed & Not Pertinent Patient has suicidal ideation: No Patient has homicidal ideation: No - Past Medical History Cardiac Medical History: Denies: Hx Coronary Artery Disease, Hx Heart Attack, Hx Hypertension Pulmonary Medical History: Denies: Hx Asthma, Hx Bronchitis, Hx COPD, Hx Pneumonia Neurological Medical History: Denies: Hx Cerebrovascular Accident, Hx Seizures Renal/ Medical History: Denies: Hx Peritoneal Dialysis GI Medical History: Musculoskeletal Medical History: Denies Hx Arthritis Traumatic Medical History: Denies: Hx Fractures Infectious Medical History: Past Surgical History: Reports: Hx Orthopedic Surgery - R shoulder. Denies: Hx Pacemaker - Immunizations Immunizations up to date: Yes Hx Diphtheria, Pertussis, Tetanus Vaccination: No Review of Systems - Review of Systems Constitutional: See HPI EENT: See HPI Cardiovascular: See HPI Respiratory: See HPI Gastrointestinal: See HPI Genitourinary: No symptoms reported Male Genitourinary: No symptoms reported Musculoskeletal: No symptoms reported Skin: No symptoms reported Hematologic/Lymphatic: No symptoms reported Neurological/Psychological: No symptoms reported Physical Exam - Vital signs Vitals: Temp Pulse BP Pulse Ox 98.9 F 70 134/87 H 98 07/20/18 21:35 07/20/18 21:35 07/20/18 21:35 07/20/18 21:35 - Notes Notes: Reviewed vital signs and nursing note as charted by RN. CONSTITUTIONAL: Well-appearing, well-nourished, acting appropriately for age HEAD: Normocephalic, atraumatic, no swelling EYES: PERRL, Conjunctivae clear, no drainage, EOMI, no scleral icterus ENT: External ears without lesions, External auditory canal is patent, TMs without erythema, landmarks clear and well visualized, no rhinorrhea, Pharynx without erythema or lesions, no tonsillar hypertrophy, airway patent, mucous membranes pink and moist NECK: Supple, no cervical lymphadenopathy, no masses CARD: Regular rate and rhythm, no murmurs, no rubs, no gallops, capillary refill < 2 seconds, symmetric pulses RESP: The lungs are clear to auscultation bilaterally, no wheezing, no rales, no rhonchi. Respiratory rate and effort are normal, normal chest excursion. No respiratory distress, no retractions, no stridor, no nasal flaring, no accessory muscle use. ABD/GI: Normal bowel sounds, non-distended, soft, non-tender, no rebound, no guarding, no palpable organomegaly EXT: Normal ROM in all joints, non-tender to palpation, no effusions, no edema SKIN: Normal color for age and race, warm, dry, good turgor, no acute lesions noted NEURO: No facial asymmetry, moves all extremities equally, motor and sensory function intact Course - Re-evaluation Re-evalutation: 07/21/18 00:33 Evaluated patient. Patient is a very well-appearing well-developed well- nourished male who presents for malaise and rhinorrhea for the last 48 hours. Patient has no sinus tenderness, mild rhinorrhea, no evidence of bulging TMs or erythema, no pharyngeal exudate or erythema, no lymphadenopathy. This most likely represents an upper respiratory illness and I explained to the patient that may take 14-21 days for symptoms to run its course. - Vital Signs Vital signs: Temp Pulse Resp BP Pulse Ox 98.9 F 70 134/87 H 98 07/20/18 21:35 07/20/18 21:35 07/20/18 21:35 07/20/18 21:35 Discharge - Discharge Clinical Impression: Viral upper respiratory illness Condition: Good Disposition: HOME, SELF-CARE Additional Instructions: You were seen in the emergency department this evening for a runny nose cough and feeling tired. Your symptoms are guest services representative of a upper respiratory illness. He do not have any evidence of sinusitis, strep throat, a middle ear infection, or bronchitis or pneumonia. Please increase your fluid intake and try to refrain from smoking. Rest for the next 24 hours. If you develop high fever, intractable vomiting, pass out or have any other concerns please return to the emergency department.
[2018-07-21 01:09] VITALS: BP 125/65
== END 2018-07-21 01:09 | disposition home or self-care (01) ==
LOC: ER 21:03
DX: J06.9 Acute upper respiratory infection, unspecified (principal); R53.81 Other malaise; F17.210 Nicotine dependence, cigarettes, uncomplicated
CPT/HCPCS: 99283

== ENCOUNTER 2019-05-22 10:19 | Emergency (ER) | payer SELFPAY ==
[2019-05-22 10:31] VITALS: BP 136/91
--- NOTE | 2019-05-22 10:44 | ER Document Report ---
HPI - HPI Patient complains to provider of: left shoulder pain Time Seen by Provider: 05/22/19 10:28 Onset: Other - 2 days Onset/Duration: Sudden Quality of pain: Achy Pain Level: 2 Context: 23-year-old male presents emergency department with complaints of shoulder pain for the last 2 days. He reports he just woke up and his shoulder was hurting. He reports he can move his arm without pain until he lowers his arm from shoulder height down. Denies trauma. Denies other symptoms such as fever vomiting diarrhea. Associated Symptoms: None Exacerbated by: Movement Relieved by: Denies Similar symptoms previously: No Recently seen / treated by doctor: No - REPRODUCTIVE Reproductive: DENIES: : Past Medical History - General Information source: Patient - Social History Smoking Status: Current Every Day Smoker Cigarette use (# per day): Yes Frequency of alcohol use: None Drug Abuse: None Occupation: [employer] Family History: Reviewed & Not Pertinent Patient has suicidal ideation: No Patient has homicidal ideation: No - Past Medical History Cardiac Medical History: Denies: Hx Coronary Artery Disease, Hx Heart Attack, Hx Hypertension Pulmonary Medical History: Denies: Hx Asthma, Hx Bronchitis, Hx COPD, Hx Pneumonia Neurological Medical History: Denies: Hx Cerebrovascular Accident, Hx Seizures Renal/ Medical History: Denies: Hx Peritoneal Dialysis GI Medical History: Musculoskeletal Medical History: Denies Hx Arthritis Traumatic Medical History: Denies: Hx Fractures Infectious Medical History: Past Surgical History: Reports: Hx Orthopedic Surgery - R shoulder. Denies: Hx Pacemaker - Immunizations Immunizations up to date: Yes Hx Diphtheria, Pertussis, Tetanus Vaccination: No Vertical Provider Document - CONSTITUTIONAL Agree With Documented VS: Yes Exam Limitations: No Limitations General Appearance: WD/WN, No Apparent Distress - INFECTION CONTROL TRAVEL OUTSIDE OF THE [place] IN LAST 30 DAYS: No - HEENT HEENT: Atraumatic, Normocephalic - NECK Neck: Normal Inspection, Supple. negative: Lymphadenopathy-Left, Lymphadenopathy-Right - RESPIRATORY Respiratory: Breath Sounds Normal, No Respiratory Distress - CARDIOVASCULAR Cardiovascular: Regular Rate - MUSCULOSKELETAL/EXTREMETIES Musculoskeletal/Extremeties: MAEW, FROM, Tender - Left shoulder anterior tender to palpate complains of pain when slowly lowering arm, no pain with supination/pronation. no obvious deformity no erythema no swelling no warmth good radial pulse cap refill less than 3 seconds - NEURO Level of Consciousness: Awake, Alert, Appropriate Motor/Sensory: No Motor Deficit - DERM Integumentary: Warm, Dry Course - Re-evaluation Re-evalutation: 05/22/19 10:48 23-year-old male presents emergency department with complaints of left anterior shoulder pain. Reports pain mostly when he lowers his left arm from shoulder height down. Denies trauma. Suspect supraspinatus injury. Patient was instructed on conservative treatment Motrin follow-up with orthopedics for continued pain. He was given a list of orthopedics to follow-up with. He was also instructed on Motrin as indicated for pain. He verbalized understand all instructions. Dictation of this chart was performed using voice recognition software; therefore, there may be some unintended grammatical errors. - Vital Signs Vital signs: Temp Pulse Resp BP Pulse Ox 98.2 F 72 16 136/91 H 100 05/22/19 10:22 05/22/19 10:22 05/22/19 10:22 05/22/19 10:22 05/22/19 10:22 Discharge - Discharge Clinical Impression: Left anterior shoulder pain Condition: Stable Disposition: HOME, SELF-CARE Instructions: Use of [id number] Ibuprofen ([facility]), Ice Packs ([facility]) Additional Instructions: *You have been evaluated for left shoulder pain *Take ibuprofen as indicated *Rest/Ice/Elevate your shoulder *Follow up with orthopedics within 1 week-call for an appointment *Return to ED for worsening condition, changes, needs Monitor your blood pressure. Your blood pressure was elevated today. This may be because you were anxious, in pain or because you need medication. It is important to follow up with your primary care provider for full evaluation. Forms: Elevated Blood Pressure, Return to Work Referrals: VERITO DIAZ MD [ACTIVE PROVISIONAL STAFF] - Follow up as needed LISSA ACOSTA JR, DO [ACTIVE PROVISIONAL STAFF] - Follow up as needed [facility] [Provider Group] - Follow up as needed
== END 2019-05-22 10:49 | disposition home or self-care (01) ==
LOC: ER 10:19
DX: M25.512 Pain in left shoulder (principal); F17.210 Nicotine dependence, cigarettes, uncomplicated
CPT/HCPCS: 99283

== ENCOUNTER 2019-07-25 11:51 | Emergency (ER) | payer SELFPAY ==
[2019-07-25] MEDS ORDERED: HYDROCODONE/ACETAMINOPHEN 5-325 MG TABLET PO ONE (12:10)
[2019-07-25] MEDS ORDERED: DIPH/PERTUSS(ACELL)/TETANUS VAC/PF 0.5 ML SYR (>=10YO) IM ONE (12:11)
--- NOTE | 2019-07-25 12:20 | ER Document Report ---
ED General - General Chief Complaint: Hand Injury Stated Complaint: RIGHT HAND INJURY Time Seen by Provider: 07/25/19 12:06 Primary Care Provider: ROXANA CAIN MD [ACTIVE STAFF] - Follow up as needed VERITO DIAZ MD [ACTIVE PROVISIONAL STAFF] - Follow up as needed Mode of Arrival: Ambulatory Information source: Patient TRAVEL OUTSIDE OF THE [place] IN LAST 30 DAYS: No - HPI Notes: 23-year-old male presents the ED for evaluation of right hand status post punching a metal box x1 day ago. Patient is unsure of his last tetanus, did break the skin at 3rd metacarpal joint. Patient states pain with any movement, unable to make a fist. Noted swelling in his hand. Pain is 7 out of 10, throbbing achy. Has not tried any [id number] medication. Worse with time, nothing makes better. Denies any previous hand injury. Patient states he punched a metal box because he was angry. Denies any fevers chills, nausea vomiting diarrhea REVIEW OF SYSTEMS:reviewed vital signs by RN CONSTITUTIONAL : Denies fever, chills, or sweats. Denies recent illness. EENT: Denies eye, ear, throat, or mouth pain or symptoms. Denies nasal or sinus congestion or discharge. Denies throat, tongue, or mouth swelling or difficulty swallowing. CARDIOVASCULAR: Denies chest pain. Denies palpitations or racing or irregular heart beat. Denies ankle edema. RESPIRATORY: Denies cough, cold, or chest congestion. Denies shortness of breath, difficulty breathing, or wheezing. GASTROINTESTINAL: Denies abdominal pain or distention. Denies nausea, vomiting, or diarrhea. Denies blood in vomitus, stools, or per rectum. Denies black, tarry stools. Denies constipation. GENITOURINARY: Denies difficulty urinating, painful urination, burning, frequency, blood in urine, or discharge. MUSCULOSKELETAL: right hand pain. Denies back or neck pain or stiffness. Denies joint pain or swelling. SKIN: Denies rash, lesions or sores. HEMATOLOGIC : Denies easy bruising or bleeding. LYMPHATIC: Denies swollen, enlarged glands. NEUROLOGICAL: Denies confusion or altered mental status. Denies passing out or loss of consciousness. Denies dizziness or lightheadedness. Denies headache. Denies weakness or paralysis or loss of use of either side. Denies problems with gait or speech. Denies sensory loss, numbness, or tingling. Denies seizures. PSYCHIATRIC: Denies anxiety or stress. Denies depression, suicidal ideation, or homicidal ideation. ALL OTHER SYSTEMS REVIEWED AND NEGATIVE. Dictation was performed using [employer] voice recognition software . PHYSICAL EXAMINATION: GENERAL: Well-appearing, well-nourished and in no acute distress. HEAD: Atraumatic, normocephalic. EYES: Pupils equal round extraocular movements intact, conjunctiva are normal. ENT: Nares patent NECK: Normal range of motion LUNGS: No respiratory distress Musculoskeletal: Normal range of motion NEUROLOGICAL: Normal speech, normal gait. PSYCH: Normal mood, normal affect. SKIN: Warm, Dry, normal turgor, no rashes or lesions noted. Right third metacarpal joint with scab superficial laceration, noted swelling of the 2nd, 3rd, and 4th metacarpal joint. no pain to wrist with flexion, extension, inversion, eversion of wrist. Linseed Oil Press Tender + 2 R>L. Snuffbox tenderness negative on right. radial pulses + 2 BUE equally. Negative kanavels sign. No vascular compromise.No body crepitus or focal area of TTP. noted pain with opposition, flexion, extension, abduction and adduction of all fingers on right. Motor and sensory function of ulnar, radial, medial nerves intact bilaterally and equally. strength 5/5 in BUE equally in wrists - Related Data Allergies/Adverse Reactions: No Known Allergies Allergy (Verified 07/25/19 12:03) Past Medical History - General Information source: Patient - Social History Smoking Status: Unknown if Ever Smoked Family History: Reviewed & Not Pertinent - Past Medical History Cardiac Medical History: Denies: Hx Coronary Artery Disease, Hx Heart Attack, Hx Hypertension Pulmonary Medical History: Denies: Hx Asthma, Hx Bronchitis, Hx COPD, Hx Pneumonia Neurological Medical History: Denies: Hx Cerebrovascular Accident, Hx Seizures Renal/ Medical History: Denies: Hx Peritoneal Dialysis GI Medical History: Musculoskeletal Medical History: Denies Hx Arthritis Traumatic Medical History: Denies: Hx Fractures Infectious Medical History: Past Surgical History: Reports: Hx Orthopedic Surgery - R shoulder. Denies: Hx Pacemaker - Immunizations Immunizations up to date: Yes Hx Diphtheria, Pertussis, Tetanus Vaccination: No Physical Exam - Vital signs Vitals: Temp Resp BP 98.6 F 20 133/85 H 07/25/19 12:03 07/25/19 12:03 07/25/19 12:03 Course - Re-evaluation Re-evalutation: 07/25/19 12:56 Afebrile vital stable no distress. Nurse's notes reviewed. X-ray negative per rad for fracture dislocation. Patient placed in a cock-up splint. Consent by patient given to place cock up splint,. cms intact, sensory motor function intact in bilateral upper extremities prior to splint application velcro splint placed without incident. cms intact 20 minutes after splint application. Splint is in good alignment. Bilateral upper extremities with motor and sensory function intact 20 minutes after application. Pt stated that splint felt comfortable. Take ibuprofen and Tylenol as needed. Follow-up with explosive specialist within the next week for further evaluation. Keep elevated above level of heart. After performing a Medical Screening Examination, I estimate there is LOW risk for OPEN FRACTURE, COMPARTMENT SYNDROME, DEEP VENOUS THROMBOSIS, ACUTE TENDON RUPTURE, or NEUROVASCULAR INJURY thus I consider the discharge disposition reasonable. I have reevaluated this patient multiple times and no significant life threatening changes are noted. The patient and I have discussed the diagnosis and risks, and we agree with discharging home to closely follow-up with their primary doctor or the referral orthopedist with the understanding that symptoms and presentations can change. We also discussed returning to the Emergency Department immediately if new or worsening symptoms occur. We have discussed the symptoms which are most concerning (e.g., changing or worsening pain, numbness, weakness) that necessitate immediate return - Vital Signs Vital signs: Temp Pulse Resp BP Pulse Ox 98.6 F 66 14 149/77 H 100 07/25/19 13:10 07/25/19 13:10 07/25/19 13:10 07/25/19 13:10 07/25/19 13:10 Discharge - Discharge Clinical Impression: Hand abrasion Hand sprain Qualifiers: Encounter type: initial encounter Laterality: right Qualified Code(s): S63.91XA - Sprain of unspecified part of right wrist and hand, initial encounter Condition: Stable Disposition: HOME, SELF-CARE Instructions: Cephalexin ([facility]), Ibuprofen (General) ([facility]), Oral Narcotic Medication ([facility]), Tetanus Immunization Given ([facility]) Additional Instructions: Your x-ray was normal. Your placed in a hand immobilizer. Alternate between Tylenol and ibuprofen for pain control. Wash abrasion with soap and water twice a day, monitor for any signs and symptoms of infection such as redness, swelling, drainage. Take antibiotics as directed for the next 5 days. Take with food. Follow-up with your primary care provider the next 24 to 48 hours. Return immediately for any new or worsening symptoms. Follow up with primary care provider, call tomorrow to make followup appointment. Prescriptions: Cephalexin Monohydrate [Keflex 500 mg Capsule] 500 mg PO BID #10 capsule Forms: Return to Work Referrals: VERITO DIAZ MD [ACTIVE PROVISIONAL STAFF] - Follow up as needed ROXANA CAIN MD [ACTIVE STAFF] - Follow up as needed
--- NOTE | 2019-07-25 12:49 | RADIOLOGY REPORT (SQ) ---
EXAM DESCRIPTION: HAND RIGHT 3 VIEWS COMPLETED DATE/TIME: 07/25/2019 12:32 pm REASON FOR STUDY: punched metal x 1 day ago,2nd,3rd,4th MCP swelling COMPARISON: None. EXAM PARAMETERS: NUMBER OF VIEWS: Three views. TECHNIQUE: AP, lateral and oblique radiographic images acquired of the left hand. LIMITATIONS: None. FINDINGS: MINERALIZATION: Normal. BONES: No acute fracture or dislocation. No worrisome bone lesions. JOINTS: No effusions. SOFT TISSUES: No radiopaque foreign body. Soft tissue swelling about the hand. OTHER: No other significant finding. IMPRESSION: No evidence of acute bony abnormality of the left hand. TECHNICAL DOCUMENTATION: JOB ID: [id number] [employer]- All Rights Reserved Reading location - IP/workstation name: [email or web address]
[2019-07-25 13:11] VITALS: BP 149/77
== END 2019-07-25 13:23 | disposition home or self-care (01) ==
LOC: ER 11:51
DX: S63.91XA Sprain of unspecified part of right wrist and hand, initial encounter (principal); S61.411A Laceration without foreign body of right hand, initial encounter; S60.519A Abrasion of unspecified hand, initial encounter; W22.8XXA Striking against or struck by other objects, initial encounter
CPT/HCPCS: 99283; 90471; 73130; 90715; L3908

== ENCOUNTER 2019-08-01 10:42 | Emergency (ER) | payer SELFPAY ==
--- NOTE | 2019-08-01 10:57 | ER Document Report ---
HPI - HPI Time Seen by Provider: 08/01/19 10:49 Notes: 23-year-old male presents to the ED for reevaluation of right hand pain after he punched a cable box last week, patient was seen in this ER had an x-ray of his hand which was negative for fracture, was placed in a Velcro hand splint. Ngozi ent states pain stays the same proximately 4 out of 10. Has not tried any iwup-[id number]-grtnyle medications, did not follow-up with automotive brake specialist. Has been wearing the Velcro splint that was placed last week. Denies any new trauma to his hand. Denies any numbness or tingling in his hands bilaterally. - REPRODUCTIVE Reproductive: DENIES: : Past Medical History - General Information source: Patient - Social History Smoking Status: Unknown if Ever Smoked Family History: Reviewed & Not Pertinent - Past Medical History Cardiac Medical History: Denies: Hx Coronary Artery Disease, Hx Heart Attack, Hx Hypertension Pulmonary Medical History: Denies: Hx Asthma, Hx Bronchitis, Hx COPD, Hx Pneumonia Neurological Medical History: Denies: Hx Cerebrovascular Accident, Hx Seizures Renal/ Medical History: Denies: Hx Peritoneal Dialysis GI Medical History: Musculoskeletal Medical History: Denies Hx Arthritis Traumatic Medical History: Denies: Hx Fractures Infectious Medical History: Past Surgical History: Reports: Hx Orthopedic Surgery - R shoulder. Denies: Hx Pacemaker - Immunizations Immunizations up to date: Yes Hx Diphtheria, Pertussis, Tetanus Vaccination: No Vertical Provider Document - CONSTITUTIONAL Agree With Documented VS: Yes Exam Limitations: No Limitations General Appearance: WD/WN Notes: PHYSICAL EXAMINATION:reviewed vital signs by RN GENERAL: Well-appearing, well-nourished and in no acute distress. HEAD: Atraumatic, normocephalic. EYES: Pupils equal round and reactive to light, extraocular movements intact, sclera anicteric, conjunctiva are normal. ENT: Nares patent, oropharynx clear without exudates. Moist mucous membranes. NECK: Normal range of motion, supple without lymphadenopathy LUNGS: Breath sounds clear to auscultation bilaterally and equal. No wheezes rales or rhonchi. HEART: Regular rate and rhythm without murmurs ABDOMEN: Soft, nontender, nondistended abdomen. No guarding, no rebound. No masses appreciated. Musculoskeletal: Normal range of motion, no pitting or edema. No cyanosis. Noted right hand pain with flexion, extension, abduction, adduction or 3rd and 4th metacarpal. Full motor and sensory function in JOAQUIN. Inventory Control Manager + 2 BUE equally. Snuffbox tenderness negative on right. Ulnar and radial pulses + 2 BUE equally. DTRs +2 in bilateral upper extremities equally. No deformity noted of hand or wrist bilaterally. Normal flexion, extension, ulnar/radial deviation. Negative kanavels sign. No open wounds or drainage from wrist. No vascular compromise. full motor and sensory function with medial, radial and ulnar nerves bilaterally and equally. NEUROLOGICAL: Cranial nerves grossly intact. Normal speech, normal gait. Normal sensory, motor exams PSYCH: Normal mood, normal affect. SKIN: Warm, Dry, normal turgor, no rashes or lesions noted. - INFECTION CONTROL TRAVEL OUTSIDE OF THE [place] IN LAST 30 DAYS: No Course - Re-evaluation Re-evalutation: 08/01/19 10:56 Afebrile vital stable no distress. Nurses notes reviewed. hand x-ray was negative. Advised to continue wearing splint. Light 20 minutes on 20 minutes several times a day. Follow-up with automotive brake specialist if symptoms become worse. After performing a Medical Screening Examination, I estimate there is LOW risk for OPEN FRACTURE, COMPARTMENT SYNDROME, DEEP VENOUS THROMBOSIS, ACUTE TENDON RUPTURE, or NEUROVASCULAR INJURY thus I consider the discharge disposition reasonable. I have reevaluated this patient multiple times and no significant life threatening changes are noted. The patient and I have discussed the diagnosis and risks, and we agree with discharging home to closely follow-up with their primary doctor or the referral orthopedist with the understanding that symptoms and presentations can change. We also discussed returning to the Emergency Department immediately if new or worsening symptoms occur. We have discussed the symptoms which are most concerning (e.g., changing or worsening pain, numbness, weakness) that necessitate immediate return 08/01/19 12:17 Discharge - Discharge Clinical Impression: Hand sprain Qualifiers: Encounter type: initial encounter Laterality: right Qualified Code(s): S63.91XA - Sprain of unspecified part of right wrist and hand, initial encounter Condition: Stable Disposition: HOME, SELF-CARE Instructions: Sprain ([facility]) Additional Instructions: Your x-ray today was negative. Wear Velcro wrist splint as you already have been, apply heat 20 minutes on 20 minutes off several times a day. Follow-up with automotive brake specialist for reevaluation of your hand within 1 week Return immediately for any new or worsening symptoms. Follow up with primary care provider, call tomorrow to make followup appointment. Prescriptions: Naproxen 500 mg PO BID #10 tablet Forms: Return to Work Referrals: LISSA ACOSTA JR, DO [ACTIVE PROVISIONAL STAFF] - Follow up as needed ANT COY MD [ACTIVE STAFF] - Follow up as needed
--- NOTE | 2019-08-01 12:16 | RADIOLOGY REPORT (SQ) ---
EXAM DESCRIPTION: HAND RIGHT 3 VIEWS COMPLETED DATE/TIME: 08/01/2019 11:22 am REASON FOR STUDY: R hand pain s/p punching wall x 1week ago COMPARISON: 07/25/2019 EXAM PARAMETERS: NUMBER OF VIEWS: Three views. TECHNIQUE: AP, lateral and oblique radiographic images acquired of the right hand. LIMITATIONS: None. FINDINGS: MINERALIZATION: Normal. BONES: No acute fracture or dislocation. No worrisome bone lesions. JOINTS: No effusions. SOFT TISSUES: No soft tissue swelling. No foreign body. OTHER: No other significant finding. IMPRESSION: NEGATIVE STUDY OF THE RIGHT HAND. NO RADIOGRAPHIC EVIDENCE OF ACUTE INJURY. TECHNICAL DOCUMENTATION: JOB ID: [id number] [employer]- All Rights Reserved Reading location - IP/workstation name: [email or web address]
[2019-08-01 12:34] VITALS: BP 139/78
== END 2019-08-01 12:43 | disposition home or self-care (01) ==
LOC: ER 10:42
DX: S63.91XA Sprain of unspecified part of right wrist and hand, initial encounter (principal); W22.8XXA Striking against or struck by other objects, initial encounter
CPT/HCPCS: 99283